=== PATIENT | female | born 1990 | race Caucasian/White ===

== ENCOUNTER → 2017-09-24 10:54 | Outpatient (CLI) | payer MEDICAID, SELFPAY ==
[2017-09-26 11:43] LABS: HPV Reflexed? NOT INDICATED
== END ==
PROVIDERS: Visit Provider Obstetrics & Gynecology
DX: Z12.72 Encounter for screening for malignant neoplasm of vagina (principal); Z12.4 Encounter for screening for malignant neoplasm of cervix
CPT/HCPCS: 88175; G0145